=== PATIENT | male | born 2000 | race Caucasian/White ===

== ENCOUNTER 2023-03-19 21:02 | Emergency (ER) | payer BC, SELFPAY ==
[2023-03-19 21:19] VITALS: BP 114/69; PULSE 77; RESP 16; TEMP 36.7; O2SAT 95; BMI 32.2
--- NOTE | 2023-03-19 21:58 | ED_ITS ---
HPI - Skin/Abscess/Foreign Bdy General Chief complaint: Skin/Abscess/Foreign Body Stated complaint: Skin Rash Time Seen by Provider: 03/19/23 21:47 History of Present Illness HPI narrative: This 22-year-old male comes in with rash on his arms bilaterally. He also has some on the left side of his abdomen. These symptoms began about a week ago after whacking some weeds. He has erythema with the vesicular rash that produces a small amount of fluid in the and scabs over. He does not describe any fevers. His symptoms are only occurring on his arms where he was not wearing sleeves except for 1 small area on his left abdomen. Related Data Previous Rx's Medication Instructions Recorded methylprednisolone 4 mg tablets in See Rx Instructions PO .COMPLEX 03/19/23 a dose pack (Medrol (Young)) #21 ea triamcinolone acetonide 0.1 % 1 applic topical BID #30 grams 03/19/23 topical cream Allergies Allergy/AdvReac Type Severity Reaction Status Date / Time amoxicillin Allergy Severe facial Verified 03/19/23 21:31 edema Review of Systems Status of ROS: Reports: 10 or more systems reviewed and unremarkable except as noted in History and below Narrative: Constitutional: No fevers, no weight gain or loss. Eyes: No discharge. No vision changes. HENT: No congestion, no sore throat, no ear pain. Cardiovascular: No chest pain, no palpitations. Respiratory: No shortness of breath, no wheezes, no cough. Gastrointestinal: No abdominal pain, no vomiting, no diarrhea. Genitourinary: No dysuria, no hematuria. Musculoskeletal: Normal range of motion. Skin: Pruritic vesicular rash on upper extremities and left abdomen. Neurological: No dizziness, weakness, sensory change, speech change. Endo/Heme/Allergies: No bruising or bleeding. No polydipsia. Pysch: no suicidality, no anxiety, no insomnia. All other systems reviewed and are negative. Exam Narrative: Exam Narrative: Constitutional: Well-developed, well-nourished, no acute distress. HEENT: Normocephalic, atraumatic. Neck: Normal range of motion. Nontender. Supple. Heart: Intact distal pulses. Lungs: No chest discomfort. No wheezes, rhonchi, or rales. Abdomen: Nontender. Back: Normal range of motion. Extremities: Normal range of motion. No injury. Skin: Intact. Pruritic rash on the arms bilaterally and a small area on the left lateral abdomen typical of poison edgar or poison oak. It is a vesicular rash in certain areas. Neurologic: No altered sensation. No weakness. Alert and oriented. Psychiatric: No suicidality. No anxiety or depression. No insomnia. Nursing notes and vitals signs are reviewed. Const: Vital Signs, click to edit/add: Vital Signs - 24 hr 03/19/23 21:19 Temperature 98.1 F Pulse Rate [Pulse Oximeter] 77 Respiratory Rate 16 Blood Pressure [Ri ght Upper Arm] 114/69 Pulse Oximetry 95 Oxygen Delivery Me thod Room Air Course Vital Signs Vital signs: Initial Vital Signs Temperature 98.1 F 03/19/23 21:19 Temperature Source Temporal Artery Scan 03/19/23 21:19 Pulse Rate 77 03/19/23 21:19 Pulse Rhythm Regular 03/19/23 21:19 Pulse Strength 3+ Normal 03/19/23 21:19 Respiratory Rate 16 03/19/23 21:19 Blood Pressure 114/69 03/19/23 21:19 Blood Pressure Mean 84 03/19/23 21:19 Blood Pressure Position Sitting 03/19/23 21:19 Pulse Oximetry 95 03/19/23 21:19 Oxygen Delivery Method Room Air 03/19/23 21:19 Vital Signs Temperature 98.1 F 03/19/23 21:19 Pulse Rate 77 03/19/23 21:19 Respiratory Rate 16 03/19/23 21:19 Blood Pressure 114/69 03/19/23 21:19 Pulse Oximetry 95 03/19/23 21:19 Oxygen Delivery Method Room Air 03/19/23 21:19 Temperature 98.1 F 03/19/23 21:19 Pulse Rate 77 03/19/23 21:19 Respiratory Rate 16 03/19/23 21:19 Blood Pressure 114/69 03/19/23 21:19 Pulse Oximetry 95 03/19/23 21:19 Oxygen Delivery Method Room Air 03/19/23 21:19 MDM - Skin/Abscess/Foreign Bdy MDM Narrative Medical decision making narrative: This patient comes in with typical symptoms of poison edgar or poison oak. He has a vesicular rash involving his arms which were not covered by clothing at the time that he was working among some weeds. The patient received an oral dose of dexamethasone 10 mg. I also provide prescription for Medrol Dosepak and triamcinolone cream. The patient is requesting a tetanus vaccination which was administered to him at this visit. I did give instructions regarding management of these symptoms and indications that would recommend return for re-evaluation if worsening symptoms happen. Discharge Plan Discharge Clinical Impression: Poison edgar, Contact dermatitis Patient Disposition: Home, Self-Care Condition: Unchanged Additional Instructions: Use medications as prescribed. Follow up with MD or return if worsening. Prescriptions: New triamcinolone acetonide 0.1 % cream 1 applic topical BID Qty: 30 0RF methylprednisolone [Medrol (Young)] 4 mg tablets,dose pack See Rx Instructions .ROUTE .COMPLEX Qty: 21 0RF Rx Instructions: orally per package directions Stand Alone Forms: [employer] Info Instructions
[2023-03-19] MEDS: dexAMETHasone 10 MG/ML inj PO (22:07)
--- NOTE | 2023-03-19 22:21 | ED.NURSE ---
Patient given Tdap (Adacel) vaccine in LEFT deltoid. Lot: [id number]; exp. 01/30/2025. VIS given to patient and .
== END 2023-03-19 22:25 | disposition home or self-care (01) ==
PROVIDERS: Emergency Provider Emergency Medicine Emergency Medical Services
DX: L23.7 Allergic contact dermatitis due to plants, except food (principal)
CPT/HCPCS: 90471; 99284; J1100